=== PATIENT | male | born 1960 | race Caucasian/White ===

== ENCOUNTER 2017-02-28 05:47 | Emergency (ER) | payer OTHER ==
[~2017-02-28] VITALS: Ht 182.9 cm; Wt 106.7 kg
[~2017-02-28 05:47] MED LIST: ALBUTEROL2.5 MG/3 M IH; ALPRAZOLAM0.25 M2 PO; ALPRAZOLAM1 MG PO; AMLODIPINE BESYL5 MG PO; Aldactone PO; CALCIUM + VITA1 EACH PO; CATAPRES0.2 MG PO; CHRONULAC,CEPHUL1 ML PO; Chronulac,Cephulac,E PO; DOCUSATE SODIU100 MG PO; DULCOLAX10 MG PR; FOLIC ACID1 MG PO; IBUPROFEN600 MG PO; INVANZ1 GM IV; IPRATROPIU0.2 MG/1 M IH; IRON325 MG PO; KLOR-CON M2020 MEQ PO; LASIX40 MG PO; LEVAQUIN750 MG PO; MAGNESIUM OXID400 MG PO; MULTIVITAMINS1 EAC2 PO; Motrin PO; NYSTATIN15 GM TP; OMEPRAZOLE20 MG PO; OPANA ER5 MG PO; OXYCODONE HCL15 MG PO; OXYCODONE HCL30 MG PO; OXYCODONE HCL5 MG PO; OXYCONTIN10 MG PO; OXYCONTIN30 MG PO; OXYMORPHONE HCL10 MG PO; OXYMORPHONE HCL15 MG PO; OXYMORPHONE HCL30 MG PO; OxyCODONE PO; OxyCONTIN PO; POLYETHYLENE GL17 GM PO; PRILOSEC OTC20 MG PO; PRILOSEC20 MG PO; PROTONIX40 MG PO; QUETIAPINE FUMA25 MG PO; SPIRONOLACTONE25 MG PO; TAMSULOSIN HCL0.4 MG PO; THERAGRAN1 TABLET PO; THIAMINE HCL100 MG PO; THIAMINE,VITAM100 MG PO; TYLENOL325 M1 PO; Xanax PO; ZESTRIL20 MG PO; ZOLPIDEM TARTRA10 MG PO; oxyCODONE PO
[2017-02-28] MEDS ORDERED: MS CONTIN,ORAMO15 M1 PO (06:07)
[2017-02-28 07:48] VITALS: BP 183/85
[2017-03-01] MEDS ORDERED: MORPHINE SULFAT15 MG PO (05:57)
[2017-03-01] MEDS ORDERED: NORVASC5 MG PO (14:12)
[2017-03-01] MEDS ORDERED: PREVACID30 MG PO (14:19)
[2017-03-01] MEDS ORDERED: ZANAFLEX4 M1 PO (14:20)
== END 2017-02-28 08:57 | disposition home or self-care (01) ==
LOC: EME 05:47
DX: F11.23 Opioid dependence with withdrawal (principal); Z72.89 Other problems related to lifestyle; G89.29 Other chronic pain; M54.5 Low back pain; K21.9 Gastro-esophageal reflux disease without esophagitis; I10 Essential (primary) hypertension; Z79.891 Long term (current) use of opiate analgesic
CPT/HCPCS: 70450; 99281; 99284; J1885

== ENCOUNTER 2017-02-28 22:20 | Inpatient (IN) | payer OTHER ==
[~2017-02-28] VITALS: Ht 182.9 cm; Wt 112.8 kg
[~2017-02-28 22:20] MED LIST changes: +MS CONTIN,ORAMO15 M1 PO
[2017-02-28 23:16] LABS: CHLORIDE 105 mEq/L (99-109); POTASSIUM 3.2 mEq/L (3.7-5.4); SODIUM 139 mEq/L (136-147)
[2017-02-28 23:17] LABS: MAGNESIUM 1.7 mg/dL (1.3-2.7)
[2017-02-28 23:18] LABS: GLUCOSE 106 mg/dL (70-99)
[2017-02-28 23:20] LABS: ANION GAP 15 MEQ/L (2-14)
[2017-02-28 23:22] LABS: GFR ESTIMATE (CALCULATED) > 59 mL/min/
[2017-02-28 23:23] LABS: BASOPHIL COUNT 0.1 K/uL (0-0.1); EOSINOPHIL COUNT 0.2 K/uL (0-0.3); HEMATOCRIT 51.8 % (38.0-50.0); IMMATURE GRANULOCYTE (%) 0.4 % (0.0-0.7); IMMATURE GRANULOCYTE COUNT 0.1 K/uL; INSTRUMENT ABS NEUTROPHIL CT 10.5 K/uL; LYMPHOCYTE COUNT 5.7 K/uL (1.0-2.8); MCH 29.8 PG (29.0-34.0); MCHC 33.8 G/DL (30.0-36.0); MCV 88.2 FL (86-99); MEAN PLAT.VOLUME 10.5 uM^3 (9.0-12.4); MONOCYTE (%) 11.8 % (3-12); MONOCYTE COUNT 2.2 K/uL (0-0.8); NEUTROPHIL (%) 55.9 % (45-76); NEUTROPHIL COUNT 10.5 K/uL (1.8-6.4); PLATELET COUNT 228 K/uL (156-360); RBC DIS.WIDTH-CV 12.9 % (11.8-14.6); RBC DIS.WIDTH-SD 41.8 % (39-53); RED BLOOD COUNT 5.87 M/uL (4.00-5.50); UREA NITROGEN (BUN) 14 mg/dL (9-23); WHITE BLOOD COUNT 18.7 K/uL (4.1-10.2)
[2017-02-28 23:29] LABS: TROP-I INTERPRETATION NEGATIVE; TROPONIN-I 0.04 ng/mL (0.0-0.30)
[2017-03-01] MEDS ORDERED: MORPHINE SULFAT15 MG PO (05:57)
[2017-03-01 07:28] LABS: TROP-I INTERPRETATION NEGATIVE; TROPONIN-I 0.07 ng/mL (0.0-0.30)
[2017-03-01 13:30] LABS: TROP-I INTERPRETATION NEGATIVE; TROPONIN-I 0.07 ng/mL (0.0-0.30)
[2017-03-01] MEDS ORDERED: NORVASC5 MG PO (14:12)
[2017-03-01] MEDS ORDERED: PREVACID30 MG PO (14:19)
[2017-03-01] MEDS ORDERED: ZANAFLEX4 M1 PO (14:20)
[2017-03-01 16:32] VITALS: BP 103/55
[2017-03-01 20:00] VITALS: BP 108/61
[2017-03-01 20:50] LABS: METH RESISTANT S AUREUS PCR NEGATIVE (NEGATIVE)
[2017-03-01 20:56] LABS: PROBE CHECK PASS; SPECIMEN PROCESSING CONTROL PASS
[2017-03-01 23:55] VITALS: BP 132/78
[2017-03-02 04:00] VITALS: BP 125/76
[2017-03-02 08:42] VITALS: BP 116/71
[2017-03-02 11:22] LABS: ANION GAP 5 MEQ/L (2-14); CHLORIDE 104 MEQ/L (99-109); GFR ESTIMATE (CALCULATED) > 59 mL/min/; GLUCOSE 101 mg/dL (70-99); MAGNESIUM 1.9 mg/dl (1.3-2.7); SAMPLE HEMOLYSIS CHECK 0; SAMPLE ICTERIC CHECK 0; SAMPLE LIPEMIA CHECK 0; SODIUM 136 MEQ/L (136-147); UREA NITROGEN (BUN) 15 mg/dL (9-23)
[2017-03-02 11:24] LABS: HEMATOCRIT 43.3 % (38.0-50.0); MCH 29.1 PG (29.0-34.0); MCHC 31.4 G/DL (30.0-36.0); MCV 92.5 FL (86-99); MEAN PLAT.VOLUME 10.4 uM^3 (9.0-12.4); PLATELET COUNT 169 K/uL (156-360); RBC DIS.WIDTH-CV 13.3 % (11.8-14.6); RBC DIS.WIDTH-SD 45.4 % (39-53); RED BLOOD COUNT 4.68 M/uL (4.00-5.50); WHITE BLOOD COUNT 12.9 K/uL (4.1-10.2)
[2017-03-02 11:29] LABS: POTASSIUM 3.9 MEQ/L (3.7-5.4)
[2017-03-02 13:26] VITALS: BP 119/66
[2017-03-02 14:07] LABS: ADD MIUA? YES; BILIRUBIN NEGATIVE; BLOOD NEGATIVE; COLOR YELLOW ((YELLOW)); GLUCOSE (STRIP) NEGATIVE; KETONES NEGATIVE; LEUKOCYTES TRACE; NITRITE NEGATIVE; PROTEIN (STRIP) NEGATIVE
[2017-03-02 14:22] LABS: BACTERIA NONE SEEN /HPF; EPITHELIAL CELLS NONE SEEN /HPF; MUCUS NONE SEEN /LPF; UCUL ADDED? NO
[2017-03-02 16:31] VITALS: BP 114/69
[2017-03-02 19:10] VITALS: BP 132/79
[2017-03-03] VITALS (7 sets, daily range): BP systolic 125–177; BP diastolic 61–101
[2017-03-03 07:09] LABS: HEMATOCRIT 44.5 % (38.0-50.0); MCH 29.9 PG (29.0-34.0); MCHC 32.8 G/DL (30.0-36.0); MEAN PLAT.VOLUME 10.6 uM^3 (9.0-12.4); PLATELET COUNT 170 K/uL (156-360); RBC DIS.WIDTH-CV 13.1 % (11.8-14.6); RBC DIS.WIDTH-SD 44.3 % (39-53); RED BLOOD COUNT 4.89 M/uL (4.00-5.50); WHITE BLOOD COUNT 11.1 K/uL (4.1-10.2)
[2017-03-03 07:35] LABS: ANION GAP 7 MEQ/L (2-14); CHLORIDE 106 MEQ/L (99-109); GFR ESTIMATE (CALCULATED) > 59 mL/min/; GLUCOSE 73 mg/dL (70-99); POTASSIUM 4.2 MEQ/L (3.7-5.4); SAMPLE HEMOLYSIS CHECK 0; SAMPLE ICTERIC CHECK 0; SAMPLE LIPEMIA CHECK 0; SODIUM 141 MEQ/L (136-147); UREA NITROGEN (BUN) 12 mg/dL (9-23)
[2017-03-03] MEDS ORDERED: OXYCONTIN10 MG PO (14:51)
[2017-03-03] MEDS ORDERED: MORPHINE SULFAT15 MG PO (14:51)
[2017-03-04 00:13] VITALS: BP 174/94
[2017-03-04 03:32] VITALS: BP 140/96
[2017-03-04 08:33] VITALS: BP 156/94
[2017-03-04] MEDS ORDERED: DILTIAZEM 24HR120 MG PO (11:28)
[2017-03-04] MEDS ORDERED: LISINOPRIL20 MG PO (11:28)
[2017-03-04 12:07] VITALS: BP 135/80
[2017-03-04 15:25] VITALS: BP 135/80
[2017-03-04 20:12] VITALS: BP 159/90
== END 2017-03-04 20:55 | disposition home or self-care (01) | DRG 309 ==
LOC: EME 22:20 → 4EAST 03-01 05:19 → EDOF 03-01 05:19 → 5SOUTH 03-01 05:19 → 4EAST 03-01 16:16 → 5SOUTH 03-03 00:36
PROVIDERS: Emergency Medicine; Hospitalist; Internal Medicine
DX: I48.91 Unspecified atrial fibrillation (principal); F11.23 Opioid dependence with withdrawal; E87.6 Hypokalemia; J44.9 Chronic obstructive pulmonary disease, unspecified; K21.9 Gastro-esophageal reflux disease without esophagitis; G89.29 Other chronic pain; M54.9 Dorsalgia, unspecified; I10 Essential (primary) hypertension; I27.2 Other secondary pulmonary hypertension; I07.1 Rheumatic tricuspid insufficiency; N40.0 Benign prostatic hyperplasia without lower urinary tract symptoms; E66.9 Obesity, unspecified; Z68.32 Body mass index [BMI] 32.0-32.9, adult; Z88.0 Allergy status to penicillin
CPT/HCPCS: 71010; 80048; 81003; 83605; 83735; 83880; 84443; 84484; 85025; 85027; 87040; 87641; 93005; 93306; 99281; 99285; J1644; J1650; J2270; J3475; J7030; J7050

== ENCOUNTER 2017-03-09 20:48 | Emergency (ER) | payer OTHER ==
[~2017-03-09] VITALS: Ht 182.9 cm; Wt 111.6 kg
[~2017-03-09 20:48] MED LIST changes: +DILTIAZEM 24HR120 MG PO; +LISINOPRIL20 MG PO; +MORPHINE SULFAT15 MG PO; +NORVASC5 MG PO; +PREVACID30 MG PO; +ZANAFLEX4 M1 PO
[2017-03-09 22:48] LABS: ADD MIUA? NO; BILIRUBIN NEGATIVE; BLOOD NEGATIVE; COLOR STRAW ((YELLOW)); GLUCOSE (STRIP) NEGATIVE; KETONES NEGATIVE; LEUKOCYTES NEGATIVE; NITRITE NEGATIVE; PROTEIN (STRIP) NEGATIVE; SPECIFIC GRAVITY 1.006 (1.000-1.030); UCUL ADDED? NO
[2017-03-09 22:53] LABS: ADD MEDTOX COMMENT Y; AMPHETAMINE NEGATIVE (500 ng/mL); BARBITURATES NEGATIVE (200 ng/mL); BENZODIAZEPINES NEGATIVE (150 ng/mL); COCAINE NEGATIVE (150 ng/mL); INTERNAL CONTROLS VALID? YES; METHADONE NEGATIVE (200 ng/mL); METHAMPHETAMINE NEGATIVE (500 ng/mL); OPIATES (MORPHINE) PRESUMPTIVE POSITIVE (100 ng/mL); OXYCODONE PRESUMPTIVE POSITIVE (100 ng/mL); PHENCYCLIDINE NEGATIVE (25 ng/mL); PROPOXYPHENE NEGATIVE (300 ng/mL); THC CANNABINOIDS NEGATIVE (50 ng/mL); TRICYCLIC ANTIDEPRESSANTS NEGATIVE (300 ng/mL)
[2017-03-09 23:09] LABS: BASOPHIL COUNT 0.1 K/uL (0-0.1); EOSINOPHIL (%) 1.1 % (0-5); EOSINOPHIL COUNT 0.1 K/uL (0-0.3); HEMATOCRIT 46.2 % (38.0-50.0); IMMATURE GRANULOCYTE (%) 0.3 % (0.0-0.7); INSTRUMENT ABS NEUTROPHIL CT 5.8 K/uL; LYMPHOCYTE COUNT 4.9 K/uL (1.0-2.8); MCH 29.3 PG (29.0-34.0); MCHC 33.3 G/DL (30.0-36.0); MCV 87.8 FL (86-99); MEAN PLAT.VOLUME 9.5 uM^3 (9.0-12.4); MONOCYTE (%) 9.1 % (3-12); MONOCYTE COUNT 1.1 K/uL (0-0.8); NEUTROPHIL COUNT 5.8 K/uL (1.8-6.4); PLATELET COUNT 224 K/uL (156-360); RBC DIS.WIDTH-CV 12.9 % (11.8-14.6); RBC DIS.WIDTH-SD 41.5 % (39-53); RED BLOOD COUNT 5.26 M/uL (4.00-5.50)
[2017-03-09 23:13] LABS: CHLORIDE 111 mEq/L (99-109); POTASSIUM 3.6 mEq/L (3.7-5.4); SODIUM 146 mEq/L (136-147)
[2017-03-09 23:15] LABS: GLUCOSE 93 mg/dL (70-99)
[2017-03-09 23:16] LABS: ANION GAP 12 MEQ/L (2-14)
[2017-03-09 23:18] LABS: SERUM ETHYL ALCOHOL 156 mg/dL
[2017-03-09 23:19] LABS: GFR ESTIMATE (CALCULATED) > 59 mL/min/
[2017-03-09 23:20] LABS: UREA NITROGEN (BUN) 9 mg/dL (9-23)
[2017-03-09 23:22] LABS: LIPASE 14 U/L (1.0-51.0)
[2017-03-10 03:54] VITALS: BP 164/102
== END 2017-03-10 03:56 | disposition home or self-care (01) ==
LOC: EME 20:48
PROVIDERS: Emergency Medicine
DX: F10.129 Alcohol abuse with intoxication, unspecified (principal); Y90.6 Blood alcohol level of 120-199 mg/100 ml; W19.XXXA Unspecified fall, initial encounter; J44.9 Chronic obstructive pulmonary disease, unspecified; G89.29 Other chronic pain; J45.909 Unspecified asthma, uncomplicated; K21.9 Gastro-esophageal reflux disease without esophagitis; B19.20 Unspecified viral hepatitis C without hepatic coma; Z86.14 Personal history of Methicillin resistant Staphylococcus aureus infection
CPT/HCPCS: 70450; 71010; 80048; 81003; 83690; 84999; 85025; 86900; 86901; 99281; 99285; G0480

== ENCOUNTER 2017-03-16 05:30 | Emergency (ER) | payer OTHER ==
[~2017-03-16] VITALS: Ht 182.9 cm; Wt 102.2 kg
[2017-03-16 06:16] LABS: BASOPHIL COUNT 0.1 K/uL (0-0.1); EOSINOPHIL (%) 2.5 % (0-5); EOSINOPHIL COUNT 0.4 K/uL (0-0.3); HEMATOCRIT 45.9 % (38.0-50.0); IMMATURE GRANULOCYTE (%) 0.4 % (0.0-0.7); IMMATURE GRANULOCYTE COUNT 0.1 K/uL; INSTRUMENT ABS NEUTROPHIL CT 8.7 K/uL; LYMPHOCYTE COUNT 5.7 K/uL (1.0-2.8); MCH 29.6 PG (29.0-34.0); MCHC 32.2 G/DL (30.0-36.0); MEAN PLAT.VOLUME 10.1 uM^3 (9.0-12.4); MONOCYTE (%) 7.1 % (3-12); MONOCYTE COUNT 1.1 K/uL (0-0.8); NEUTROPHIL (%) 53.9 % (45-76); NEUTROPHIL COUNT 8.7 K/uL (1.8-6.4); PLATELET COUNT 205 K/uL (156-360); RBC DIS.WIDTH-SD 43.6 % (39-53)
[2017-03-16 06:17] LABS: MCV 91.8 FL (86-99); WHITE BLOOD COUNT 16.1 K/uL (4.1-10.2)
[2017-03-16 07:16] LABS: ALKALINE PHOSPHATASE 71 IU/L (3-129); ANION GAP 9 MEQ/L (2-14); CHLORIDE 109 MEQ/L (99-109); GFR ESTIMATE (CALCULATED) > 59 mL/min/; GLUCOSE 92 mg/dL (70-99); POTASSIUM 3.6 MEQ/L (3.7-5.4); SAMPLE HEMOLYSIS CHECK 0; SAMPLE ICTERIC CHECK 0; SAMPLE LIPEMIA CHECK 0; SODIUM 142 MEQ/L (136-147); TOTAL BILIRUBIN 0.7 MG/DL (0.0-1.0); UREA NITROGEN (BUN) 13 mg/dL (9-23)
[2017-03-16 09:05] LABS: ADD MIUA? NO; BILIRUBIN NEGATIVE; BLOOD NEGATIVE; COLOR STRAW ((YELLOW)); GLUCOSE (STRIP) NEGATIVE; KETONES NEGATIVE; LEUKOCYTES NEGATIVE; NITRITE NEGATIVE; PROTEIN (STRIP) NEGATIVE; SPECIFIC GRAVITY 1.008 (1.000-1.030); UCUL ADDED? NO; UROBILINOGEN 0.2 MG/DL (0.2-1.0)
[2017-03-16 11:02] LABS: C DIFF TOXIN NEGATIVE (NEGATIVE); PROBE CHECK PASS; SPECIMEN PROCESSING CONTROL PASS
[2017-03-16] MEDS ORDERED: PERCOCET 5/31 TABLET PO (12:32)
[2017-03-16 13:15] VITALS: BP 176/114
== END 2017-03-16 13:17 | disposition home or self-care (01) ==
LOC: EME → EDBD 05:30 → EME 05:30
PROVIDERS: Emergency Medicine
DX: R19.7 Diarrhea, unspecified (principal); R10.9 Unspecified abdominal pain; F11.20 Opioid dependence, uncomplicated; I10 Essential (primary) hypertension; G89.29 Other chronic pain; K21.9 Gastro-esophageal reflux disease without esophagitis; Z93.3 Colostomy status; Z86.14 Personal history of Methicillin resistant Staphylococcus aureus infection; Z88.0 Allergy status to penicillin; Z88.6 Allergy status to analgesic agent
CPT/HCPCS: 71010; 74177; 80053; 81003; 83605; 85025; 87493; 99281; 99285; J2270; J7030

== ENCOUNTER 2017-03-17 07:59 | Emergency (ER) | payer OTHER ==
[~2017-03-17] VITALS: Ht 182.9 cm; Wt 107.0 kg
[~2017-03-17 07:59] MED LIST changes: +PERCOCET 5/31 TABLET PO
[2017-03-17 08:36] LABS: BASOPHIL COUNT 0.1 K/uL (0-0.1); EOSINOPHIL (%) 3.8 % (0-5); EOSINOPHIL COUNT 0.4 K/uL (0-0.3); HEMATOCRIT 49.8 % (38.0-50.0); IMMATURE GRANULOCYTE (%) 0.3 % (0.0-0.7); INSTRUMENT ABS NEUTROPHIL CT 6.1 K/uL; LYMPHOCYTE COUNT 3.8 K/uL (1.0-2.8); MCH 29.2 PG (29.0-34.0); MCHC 32.3 G/DL (30.0-36.0); MCV 90.2 FL (86-99); MEAN PLAT.VOLUME 10.1 uM^3 (9.0-12.4); MONOCYTE (%) 8.8 % (3-12); NEUTROPHIL (%) 53.5 % (45-76); NEUTROPHIL COUNT 6.1 K/uL (1.8-6.4); PLATELET COUNT 215 K/uL (156-360); RBC DIS.WIDTH-CV 12.9 % (11.8-14.6); RBC DIS.WIDTH-SD 42.2 % (39-53); RED BLOOD COUNT 5.52 M/uL (4.00-5.50); WHITE BLOOD COUNT 11.5 K/uL (4.1-10.2)
[2017-03-17 09:03] LABS: ANION GAP 6 MEQ/L (2-14); CHLORIDE 107 MEQ/L (99-109); POTASSIUM 3.8 MEQ/L (3.7-5.4); SAMPLE HEMOLYSIS CHECK 0; SAMPLE ICTERIC CHECK 0; SAMPLE LIPEMIA CHECK 0; SODIUM 141 MEQ/L (136-147)
[2017-03-17 09:09] LABS: GFR ESTIMATE (CALCULATED) > 59 mL/min/; GLUCOSE 108 mg/dL (70-99); UREA NITROGEN (BUN) 8 mg/dL (9-23)
[2017-03-17 10:43] VITALS: BP 126/77
== END 2017-03-17 10:48 | disposition home or self-care (01) ==
LOC: EME → EDBD 07:59 → EME 10:48
PROVIDERS: Emergency Medicine
DX: F11.20 Opioid dependence, uncomplicated (principal); M54.9 Dorsalgia, unspecified; G89.29 Other chronic pain; F41.9 Anxiety disorder, unspecified; G47.00 Insomnia, unspecified; J45.909 Unspecified asthma, uncomplicated; J44.9 Chronic obstructive pulmonary disease, unspecified; K21.9 Gastro-esophageal reflux disease without esophagitis; I10 Essential (primary) hypertension; B19.20 Unspecified viral hepatitis C without hepatic coma; Z86.14 Personal history of Methicillin resistant Staphylococcus aureus infection
CPT/HCPCS: 80048; 85025; 99281; 99284

== ENCOUNTER 2017-03-19 13:45 | Emergency (ER) | payer OTHER ==
[~2017-03-19] VITALS: Ht 182.9 cm; Wt 108.4 kg
[2017-03-19] MEDS ORDERED: OXYCODONE HCL5 MG PO (14:40)
[2017-03-19 15:21] VITALS: BP 100/55
== END 2017-03-19 15:28 | disposition home or self-care (01) ==
LOC: EME → EDBD 13:45 → EME 13:45
DX: G89.29 Other chronic pain (principal); M54.5 Low back pain
CPT/HCPCS: 99281; 99284; J2270

== ENCOUNTER 2017-03-24 20:23 | Emergency (ER) | payer OTHER ==
[~2017-03-24] VITALS: Ht 182.9 cm; Wt 118.2 kg
[2017-03-24 23:36] VITALS: BP 161/121
[2017-03-25] MEDS ORDERED: PERCOCET 5/31 TABLET PO (11:07)
== END 2017-03-24 23:37 | disposition home or self-care (01) ==
LOC: EME 20:23
DX: S16.1XXA Strain of muscle, fascia and tendon at neck level, initial encounter (principal); W17.89XA Other fall from one level to another, initial encounter; G89.29 Other chronic pain; M54.9 Dorsalgia, unspecified
CPT/HCPCS: 72040; 99281; 99283

== ENCOUNTER 2017-03-25 07:44 | Emergency (ER) | payer OTHER ==
[~2017-03-25] VITALS: Ht 182.9 cm; Wt 101.8 kg
[2017-03-25 07:47] VITALS: BP 183/102
[2017-03-25 08:52] LABS: MCH 29.4 PG (29.0-34.0); MCHC 33.5 G/DL (30.0-36.0); MCV 87.6 FL (86-99); MEAN PLAT.VOLUME 10.5 uM^3 (9.0-12.4); PLATELET COUNT 211 K/uL (156-360); RBC DIS.WIDTH-CV 12.6 % (11.8-14.6); RED BLOOD COUNT 5.48 M/uL (4.00-5.50); WHITE BLOOD COUNT 11.2 K/uL (4.1-10.2)
[2017-03-25 09:06] LABS: CHLORIDE 105 mEq/L (99-109); POTASSIUM 3.4 mEq/L (3.7-5.4); SODIUM 142 mEq/L (136-147)
[2017-03-25 09:08] LABS: GLUCOSE 97 mg/dL (70-99)
[2017-03-25 09:09] LABS: ANION GAP 12 MEQ/L (2-14)
[2017-03-25 09:09] LABS: ADD MIUA? NO; BILIRUBIN NEGATIVE; BLOOD NEGATIVE; COLOR YELLOW ((YELLOW)); GLUCOSE (STRIP) NEGATIVE; KETONES NEGATIVE; LEUKOCYTES NEGATIVE; NITRITE NEGATIVE; PROTEIN (STRIP) NEGATIVE; SPECIFIC GRAVITY 1.011 (1.000-1.030)
[2017-03-25 09:10] LABS: TOTAL BILIRUBIN 1.8 mg/dL (0.0-1.0)
[2017-03-25 09:11] LABS: ALKALINE PHOSPHATASE 55 IU/L (3-129); GFR ESTIMATE (CALCULATED) > 59 mL/min/
[2017-03-25 09:13] LABS: UREA NITROGEN (BUN) 11 mg/dL (9-23)
[2017-03-25] MEDS ORDERED: PERCOCET 5/31 TABLET PO (11:07)
== END 2017-03-25 11:51 | disposition home or self-care (01) ==
LOC: EME 07:44
PROVIDERS: Nurse Practitioner Family
DX: G89.29 Other chronic pain (principal); M54.2 Cervicalgia; W05.0XXA Fall from non-moving wheelchair, initial encounter; I10 Essential (primary) hypertension; M54.9 Dorsalgia, unspecified; M79.604 Pain in right leg; M79.605 Pain in left leg; D72.829 Elevated white blood cell count, unspecified; V89.2XXS Person injured in unspecified motor-vehicle accident, traffic, sequela
CPT/HCPCS: 72125; 80053; 81003; 85027; 93005; 99281; 99284

== ENCOUNTER 2017-03-28 06:48 | Inpatient (IN) | payer OTHER ==
[~2017-03-28] VITALS: Ht 182.9 cm; Wt 106.6 kg
[2017-03-28 08:40] LABS: HEMATOCRIT 47.4 % (38.0-50.0); MCH 29.6 PG (29.0-34.0); MCHC 33.1 G/DL (30.0-36.0); MCV 89.3 FL (86-99); MEAN PLAT.VOLUME 10.1 uM^3 (9.0-12.4); PLATELET COUNT 221 K/uL (156-360); RBC DIS.WIDTH-CV 12.7 % (11.8-14.6); RBC DIS.WIDTH-SD 41.6 % (39-53); RED BLOOD COUNT 5.31 M/uL (4.00-5.50); WHITE BLOOD COUNT 11.6 K/uL (4.1-10.2)
[2017-03-28 08:41] LABS: ADD MIUA? NO; BILIRUBIN NEGATIVE; BLOOD NEGATIVE; COLOR YELLOW ((YELLOW)); GLUCOSE (STRIP) NEGATIVE; KETONES NEGATIVE; LEUKOCYTES NEGATIVE; NITRITE NEGATIVE; PROTEIN (STRIP) NEGATIVE; SPECIFIC GRAVITY 1.012 (1.000-1.030); UCUL ADDED? NO
[2017-03-28 08:54] LABS: AMPHETAMINE NEGATIVE (500 ng/mL); BARBITURATES NEGATIVE (200 ng/mL); BENZODIAZEPINES NEGATIVE (150 ng/mL); COCAINE NEGATIVE (150 ng/mL); INTERNAL CONTROLS VALID? YES; METHADONE NEGATIVE (200 ng/mL); METHAMPHETAMINE NEGATIVE (500 ng/mL); OPIATES (MORPHINE) NEGATIVE (100 ng/mL); OXYCODONE PRESUMPTIVE POSITIVE (100 ng/mL); PHENCYCLIDINE NEGATIVE (25 ng/mL); PROPOXYPHENE NEGATIVE (300 ng/mL); THC CANNABINOIDS NEGATIVE (50 ng/mL); TRICYCLIC ANTIDEPRESSANTS NEGATIVE (300 ng/mL)
[2017-03-28 08:57] LABS: CHLORIDE 104 mEq/L (99-109); POTASSIUM 3.9 mEq/L (3.7-5.4); SODIUM 142 mEq/L (136-147)
[2017-03-28 09:00] LABS: GLUCOSE 100 mg/dL (70-99)
[2017-03-28 09:01] LABS: ANION GAP 10 MEQ/L (2-14)
[2017-03-28 09:02] LABS: TOTAL BILIRUBIN 1.4 mg/dL (0.0-1.0)
[2017-03-28 09:03] LABS: ALKALINE PHOSPHATASE 54 IU/L (3-129); GFR ESTIMATE (CALCULATED) > 59 mL/min/; SERUM ETHYL ALCOHOL < 10 mg/dL
[2017-03-28 09:04] LABS: UREA NITROGEN (BUN) 11 mg/dL (9-23)
[2017-03-28] MEDS ORDERED: LYRICA100 MG PO (09:21)
[2017-03-28] MEDS ORDERED: ZESTORETIC 20-1 EAC1 PO (11:55)
[2017-03-28] MEDS ORDERED: LYRICA75 MG PO (11:56)
[2017-03-28 15:13] VITALS: BP 173/107
[2017-03-29 07:49] VITALS: BP 134/86
[2017-03-29 15:20] VITALS: BP 83/53
[2017-03-29 18:12] VITALS: BP 114/71
[2017-03-30 07:46] VITALS: BP 94/53
[2017-03-30 11:15] VITALS: BP 101/52
[2017-03-30 15:48] VITALS: BP 146/76
[2017-03-30 21:08] VITALS: BP 99/50
[2017-03-31 08:00] VITALS: BP 98/57
[2017-03-31 11:54] VITALS: BP 117/61
[2017-03-31 16:01] VITALS: BP 117/83
[2017-04-01 07:36] VITALS: BP 167/101
[2017-04-01 13:09] VITALS: BP 155/86
[2017-04-01 15:20] VITALS: BP 144/93
[2017-04-02 07:46] VITALS: BP 158/105
[2017-04-02 15:47] VITALS: BP 190/108
[2017-04-02 18:35] VITALS: BP 125/87
[2017-04-03 02:45] VITALS: BP 144/93
[2017-04-03 07:38] VITALS: BP 137/89
[2017-04-03 14:59] VITALS: BP 146/89
[2017-04-03 23:59] VITALS: BP 159/98
[2017-04-04 02:20] VITALS: BP 140/92
[2017-04-04 07:23] VITALS: BP 149/95
[2017-04-04] MEDS ORDERED: LYRICA75 MG PO (09:10)
[2017-04-04] MEDS ORDERED: DULOXETINE HCL30 MG PO (09:10)
[2017-04-04] MEDS ORDERED: TRAMADOL HCL50 MG PO (09:10)
== END 2017-04-04 10:50 | disposition home or self-care (01) | DRG 881 ==
LOC: EME 06:48 → 1WEST 10:29 → EDOF 10:29 → 1WEST 15:00
PROVIDERS: Nurse Practitioner Family
PROC: HZ2ZZZZ Detoxification Services for Substance Abuse Treatment (ICD-10-PCS; principal; 2017-03-28)
DX: F32.9 Major depressive disorder, single episode, unspecified (principal); F11.23 Opioid dependence with withdrawal; J45.909 Unspecified asthma, uncomplicated; J44.9 Chronic obstructive pulmonary disease, unspecified; K21.9 Gastro-esophageal reflux disease without esophagitis; G89.29 Other chronic pain; M79.606 Pain in leg, unspecified; M54.5 Low back pain; R45.851 Suicidal ideations; I10 Essential (primary) hypertension; K43.2 Incisional hernia without obstruction or gangrene; E66.9 Obesity, unspecified; I48.91 Unspecified atrial fibrillation; Z88.0 Allergy status to penicillin; Z68.31 Body mass index [BMI] 31.0-31.9, adult
CPT/HCPCS: 80053; 81003; 85027; 90839; 97150 GO; 97530 GP; 99281; 99285; G0480; J1885; Q0177

== ENCOUNTER 2017-04-22 09:44 | Emergency (ER) | payer OTHER ==
[~2017-04-22] VITALS: Ht 182.9 cm; Wt 100.7 kg
[~2017-04-22 09:44] MED LIST changes: +DULOXETINE HCL30 MG PO; +LYRICA100 MG PO; +LYRICA75 MG PO; +TRAMADOL HCL50 MG PO; +ZESTORETIC 20-1 EAC1 PO
[2017-04-22 11:38] LABS: HEMATOCRIT 49.1 % (38.0-50.0); MCHC 34.6 G/DL (30.0-36.0); MEAN PLAT.VOLUME 9.7 uM^3 (9.0-12.4); PLATELET COUNT 217 K/uL (156-360); RBC DIS.WIDTH-CV 12.4 % (11.8-14.6); RBC DIS.WIDTH-SD 37.8 % (39-53); RED BLOOD COUNT 5.86 M/uL (4.00-5.50); WHITE BLOOD COUNT 14.3 K/uL (4.1-10.2)
[2017-04-22 11:39] LABS: MCV 83.8 FL (86-99)
[2017-04-22 11:44] LABS: CHLORIDE 95 mEq/L (99-109); POTASSIUM 3.3 mEq/L (3.7-5.4); SODIUM 128 mEq/L (136-147)
[2017-04-22 11:46] LABS: GLUCOSE 107 mg/dL (70-99)
[2017-04-22 11:47] LABS: ANION GAP 12 MEQ/L (2-14)
[2017-04-22 11:48] LABS: TOTAL BILIRUBIN 1.9 mg/dL (0.0-1.0)
[2017-04-22 11:49] LABS: ALKALINE PHOSPHATASE 53 IU/L (3-129)
[2017-04-22 11:50] LABS: GFR ESTIMATE (CALCULATED) > 59 mL/min/
[2017-04-22 11:51] LABS: UREA NITROGEN (BUN) 19 mg/dL (9-23)
[2017-04-22 12:41] LABS: ADD MIUA? YES; BILIRUBIN NEGATIVE; BLOOD NEGATIVE; COLOR AMBER ((YELLOW)); GLUCOSE (STRIP) NEGATIVE; KETONES NEGATIVE; LEUKOCYTES NEGATIVE; NITRITE NEGATIVE; PROTEIN (STRIP) 30; SPECIFIC GRAVITY 1.025 (1.000-1.030)
[2017-04-22 12:46] LABS: BACTERIA RARE /HPF; CALCIUM OXALATE CRYSTALS 2+ /HPF; EPITHELIAL CELLS RARE /HPF; HYALINE CASTS 20-30 /LPF; MUCUS 1+ /LPF; RED BLOOD CELLS 0-5 /HPF (0-5); UCUL ADDED? NO
[2017-04-22] MEDS ORDERED: CYMBALTA30 MG PO (13:05)
[2017-04-22] MEDS ORDERED: NORVASC10 MG PO (13:06)
[2017-04-22] MEDS ORDERED: CLONIDINE HCL0.1 MG PO (13:06)
[2017-04-22] MEDS ORDERED: AMBIEN5 MG PO (13:06)
[2017-04-22] MEDS ORDERED: TRAMADOL HCL50 MG PO (13:12)
[2017-04-22 15:26] LABS: CHLORIDE 96 mEq/L (99-109); POTASSIUM 3.1 mEq/L (3.7-5.4); SODIUM 129 mEq/L (136-147)
[2017-04-22 15:28] LABS: GLUCOSE 105 mg/dL (70-99)
[2017-04-22 15:29] LABS: ANION GAP 10 MEQ/L (2-14)
[2017-04-22 15:32] LABS: GFR ESTIMATE (CALCULATED) > 59 mL/min/
[2017-04-22 15:33] LABS: UREA NITROGEN (BUN) 20 mg/dL (9-23)
[2017-04-22 18:21] LABS: CHLORIDE 101 mEq/L (99-109); POTASSIUM 2.9 mEq/L (3.7-5.4); SODIUM 133 mEq/L (136-147)
[2017-04-22 18:23] LABS: GLUCOSE 98 mg/dL (70-99)
[2017-04-22 18:25] LABS: ANION GAP 12 MEQ/L (2-14)
[2017-04-22 18:27] LABS: GFR ESTIMATE (CALCULATED) > 59 mL/min/
[2017-04-22 18:28] LABS: UREA NITROGEN (BUN) 18 mg/dL (9-23)
[2017-04-22 19:08] VITALS: BP 110/73
== END 2017-04-22 19:14 | disposition home or self-care (01) ==
LOC: EME 09:44 → EDOF 14:23
PROVIDERS: Nurse Practitioner Family
DX: R10.84 Generalized abdominal pain (principal); K59.00 Constipation, unspecified; M54.5 Low back pain; F11.20 Opioid dependence, uncomplicated; I10 Essential (primary) hypertension; J44.9 Chronic obstructive pulmonary disease, unspecified; K21.9 Gastro-esophageal reflux disease without esophagitis; B19.20 Unspecified viral hepatitis C without hepatic coma; Z91.19 Patient's noncompliance with other medical treatment and regimen; F10.10 Alcohol abuse, uncomplicated; Z87.11 Personal history of peptic ulcer disease; Z86.14 Personal history of Methicillin resistant Staphylococcus aureus infection; Z88.0 Allergy status to penicillin
CPT/HCPCS: 71020; 74000; 74177; 80048 91; 80053; 81003; 85027; 99281; 99285; J1885; J7030

== ENCOUNTER 2017-06-28 00:21 | Emergency (ER) | payer OTHER ==
[~2017-06-28] VITALS: Ht 182.9 cm; Wt 107.8 kg
[~2017-06-28 00:21] MED LIST changes: +AMBIEN5 MG PO; +CLONIDINE HCL0.1 MG PO; +CYMBALTA30 MG PO; +NORVASC10 MG PO
[2017-06-28 01:24] LABS: HEMATOCRIT 46.2 % (38.0-50.0); MCH 29.3 PG (29.0-34.0); MCHC 33.3 G/DL (30.0-36.0); MEAN PLAT.VOLUME 9.8 uM^3 (9.0-12.4); PLATELET COUNT 166 K/uL (156-360); RBC DIS.WIDTH-CV 14.7 % (11.8-14.6); RBC DIS.WIDTH-SD 47.5 % (39-53); RED BLOOD COUNT 5.25 M/uL (4.00-5.50); WHITE BLOOD COUNT 9.4 K/uL (4.1-10.2)
[2017-06-28 01:34] LABS: CHLORIDE 103 mEq/L (99-109); POTASSIUM 3.5 mEq/L (3.7-5.4); SODIUM 140 mEq/L (136-147)
[2017-06-28 01:36] LABS: GLUCOSE 82 mg/dL (70-99)
[2017-06-28 01:37] LABS: ANION GAP 10 MEQ/L (2-14)
[2017-06-28 01:39] LABS: SERUM ETHYL ALCOHOL < 10 mg/dL
[2017-06-28 01:40] LABS: GFR ESTIMATE (CALCULATED) > 59 mL/min/
[2017-06-28 01:41] LABS: UREA NITROGEN (BUN) 18 mg/dL (9-23)
[2017-06-28 01:43] LABS: SALICYLATE < 5.0 MG/DL (15-30)
[2017-06-28 02:35] LABS: AMPHETAMINE NEGATIVE (500 ng/mL); BARBITURATES NEGATIVE (200 ng/mL); BENZODIAZEPINES NEGATIVE (150 ng/mL); COCAINE NEGATIVE (150 ng/mL); INTERNAL CONTROLS VALID? YES; METHADONE NEGATIVE (200 ng/mL); METHAMPHETAMINE NEGATIVE (500 ng/mL); OPIATES (MORPHINE) NEGATIVE (100 ng/mL); OXYCODONE NEGATIVE (100 ng/mL); PHENCYCLIDINE NEGATIVE (25 ng/mL); PROPOXYPHENE NEGATIVE (300 ng/mL); THC CANNABINOIDS NEGATIVE (50 ng/mL); TRICYCLIC ANTIDEPRESSANTS NEGATIVE (300 ng/mL)
[2017-06-28 15:17] VITALS: BP 119/82
== END 2017-06-28 16:14 | disposition home or self-care (01) ==
LOC: EME → EDBD 00:21 → EME 16:14
PROVIDERS: Emergency Medicine
DX: T40.4X1A Poisoning by other synthetic narcotics, accidental (unintentional), initial encounter (principal); T50.991A Poisoning by other drugs, medicaments and biological substances, accidental (unintentional), initial encounter; F32.9 Major depressive disorder, single episode, unspecified; J44.9 Chronic obstructive pulmonary disease, unspecified; K21.9 Gastro-esophageal reflux disease without esophagitis; G89.29 Other chronic pain; B19.20 Unspecified viral hepatitis C without hepatic coma; Z86.14 Personal history of Methicillin resistant Staphylococcus aureus infection
CPT/HCPCS: 71010; 80048; 85027; 90839; 93005; 99281; 99285; G0480

== ENCOUNTER 2017-07-09 10:58 | Emergency (ER) | payer OTHER ==
[~2017-07-09] VITALS: Ht 182.9 cm; Wt 99.4 kg
[2017-07-09 11:49] LABS: EOSINOPHIL (%) 0.7 % (0-5); EOSINOPHIL COUNT 0.1 K/uL (0-0.3); HEMATOCRIT 44.2 % (38.0-50.0); IMMATURE GRANULOCYTE (%) 0.7 % (0.0-0.7); IMMATURE GRANULOCYTE COUNT 0.1 K/uL; INSTRUMENT ABS NEUTROPHIL CT 13.8 K/uL; MCH 29.3 PG (29.0-34.0); MCHC 33.7 G/DL (30.0-36.0); MEAN PLAT.VOLUME 10.5 uM^3 (9.0-12.4); MONOCYTE (%) 6.3 % (3-12); MONOCYTE COUNT 1.1 K/uL (0-0.8); NEUTROPHIL (%) 80.5 % (45-76); NEUTROPHIL COUNT 13.8 K/uL (1.8-6.4); PLATELET COUNT 120 K/uL (156-360); RBC DIS.WIDTH-CV 15.2 % (11.8-14.6); RBC DIS.WIDTH-SD 48.7 % (39-53); RED BLOOD COUNT 5.08 M/uL (4.00-5.50); WHITE BLOOD COUNT 17.1 K/uL (4.1-10.2)
[2017-07-09 11:55] LABS: INTER. NORMALIZED RATIO 1.2
[2017-07-09 12:04] LABS: CHLORIDE 105 mEq/L (99-109); POTASSIUM 3.3 mEq/L (3.7-5.4); SODIUM 139 mEq/L (136-147)
[2017-07-09 12:05] LABS: MAGNESIUM 1.5 mg/dL (1.3-2.7)
[2017-07-09 12:06] LABS: GLUCOSE 99 mg/dL (70-99)
[2017-07-09 12:07] LABS: ANION GAP 8 MEQ/L (2-14)
[2017-07-09 12:10] LABS: GFR ESTIMATE (CALCULATED) > 59 mL/min/
[2017-07-09 12:11] LABS: UREA NITROGEN (BUN) 16 mg/dL (9-23)
[2017-07-09 12:14] LABS: TROP-I INTERPRETATION NEGATIVE; TROPONIN-I < 0.01 ng/mL (0.0-0.30)
[2017-07-09 16:46] LABS: TOTAL BILIRUBIN 5.7 mg/dL (0.0-1.0)
[2017-07-09 16:47] LABS: ALKALINE PHOSPHATASE 106 IU/L (3-129)
[2017-07-09 16:50] LABS: DIRECT BILIRUBIN 4.3 mg/dL (0.0-0.3)
[2017-07-09] MEDS ORDERED: LEVAQUIN750 MG PO (17:27)
[2017-07-09] MEDS ORDERED: ZOFRAN4 MG PO (17:27)
[2017-07-09 17:44] LABS: LIPASE < 3.0 U/L (1.0-51.0)
[2017-07-09 18:36] VITALS: BP 132/87
== END 2017-07-09 19:47 | disposition home or self-care (01) ==
LOC: EME → EDBD 10:58 → EME 10:58
PROVIDERS: Emergency Medicine
DX: J44.0 Chronic obstructive pulmonary disease with (acute) lower respiratory infection (principal); J18.9 Pneumonia, unspecified organism; B19.20 Unspecified viral hepatitis C without hepatic coma; Z99.3 Dependence on wheelchair; R79.89 Other specified abnormal findings of blood chemistry; Z88.0 Allergy status to penicillin; K80.20 Calculus of gallbladder without cholecystitis without obstruction; I10 Essential (primary) hypertension
CPT/HCPCS: 71020; 71275; 76705; 80048; 80076; 83690; 83735; 84484; 85025; 85379; 85610; 85730; 93005; 99281; 99285; J1956